=== PATIENT | male | born 1945 | race Caucasian/White ===

== ENCOUNTER 2022-04-02 08:35 | Day surgery (SDC) | payer MEDICARE, BC ==
[~2022-04-02] VITALS: Ht 182.9 cm; Wt 88.8 kg
[~2022-04-02 08:35] MED LIST: ASCO500 PO; COLCHICINE0.6 MG PO; MAGNESIUM PO; MULVITA PO; TADA10TA PO; VITAMIN D310 MC4 PO
--- NOTE | 2022-04-02 09:39 | NUR ---
Ambulatory in Day Surgery. History, Chart, Medications and Allergies reviewed before start of procedure. Patient States Post-Procedure ride home has been arranged WITH [facility].
--- NOTE | 2022-04-02 12:44 | NUR ---
AT BEDSIDE. SCRIPT GIVEN TO SPOUSE TO TAKE TO PHARMACY. ADDITIONAL DOSE NORCO GIVEN FOR INCREASED PAIN 01/12, WILL MONITOR FOR EFFECT. ICE THERAPY FOR COMFORT. INSCISIONS CDI
--- NOTE | 2022-04-02 12:52 | NUR ---
04/02/22 1252 Yina Bello VERIFICATIONS: EDIT CHART.
== END 2022-04-02 23:00 | disposition home or self-care (01) ==
LOC: ORSCMMR 08:35 → ORD 12:30 → ORSCMMR 23:00
PROVIDERS: Surgery
PROC: 0YU64JZ Supplement Left Inguinal Region with Synthetic Substitute, Percutaneous Endoscopic Approach (ICD-10-PCS; principal; 2022-04-02 09:00)
PROC: 8E0W4CZ Robotic Assisted Procedure of Trunk Region, Percutaneous Endoscopic Approach (ICD-10-PCS; principal; 2022-04-02 09:00)
DX: K40.90 Unilateral inguinal hernia, without obstruction or gangrene, not specified as recurrent (principal); I10 Essential (primary) hypertension; Z79.899 Other long term (current) drug therapy
CPT/HCPCS: 49650; S2900; A9270; C1781; J0690; J2795; J7120